=== PATIENT | female | born 1950 | race Caucasian/White ===

== ENCOUNTER 2019-02-11 22:20 | Emergency (ER) | payer MEDICARE, OTHER ==
[2019-02-11 22:42] VITALS: BP 139/74; PULSE 84
--- NOTE | 2019-02-11 22:52 | EDM.PDOC ---
ED HPI GENERAL MEDICAL PROBLEM - General Chief Complaint: Gastrointestinal Problem Stated Complaint: GREEN DIARRHEA Time Seen by Provider: 02/11/19 22:40 Source of Information: Reports: Patient History Limitations: Reports: No Limitations - History of Present Illness INITIAL COMMENTS - FREE TEXT/NARRATIVE: This 68 yo female patient reports to the ED due to having an episode of green diarrhea. The patient reports she has been having loose bowel movements all day. The patient reports she has had intermittent diarrhea for years. The patient reports she got worried when she had green diarrhea. Onset: Today Duration: Intermittent Quality: Reports: Other Severity: Mild Improves with: Reports: None Worsens with: Reports: None Context: Reports: Other Associated Symptoms: Reports: No Other Symptoms - Related Data Allergies Allergy/AdvReac Type Severity Reaction Status Date / Time erythromycin base Allergy Hives Verified 02/11/19 22:38 morphine Allergy Hives Verified 02/11/19 22:38 Home Meds: Home Meds Albuterol Sulfate [Albuterol Sulfate HFA] 2 puff IH Q6HR PRN 09/30/14 [History] Citalopram [Citalopram Hbr] 40 mg PO DAILY 09/30/14 [History] Famotidine [Pepcid] 20 mg PO DAILY 09/30/14 [History] Famotidine [Pepcid] 20 mg PO DAILY 09/30/14 [History] Fexofenadine HCl [Mariaa Allergy] 60 mg PO DAILY 09/30/14 [History] Fluticasone Propionate [Flonase] 16 gm NS DAILY 09/30/14 [History] Glimepiride [Amaryl] 2 mg PO DAILY 09/30/14 [History] Hydrocortisone [Anusol-HC] 30 gm RC BID PRN 09/30/14 [History] Levothyroxine [Sythroid] 100 mcg PO DAILY 09/30/14 [History] Liraglutide [Victoza] 0.6 mg SUBCUT DAILY 09/30/14 [History] Lisinopril/Hydrochlorothiazide [Lisinopril-Hctz 10-12.5 mg Tab] 1 tab PO DAILY 09/30/14 [History] Simvastatin [Zocor] 10 mg PO BEDTIME 09/30/14 [History] clonazePAM [Klonopin] 0.5 mg PO DAILY 09/30/14 [History] metFORMIN HCl [Metformin HCl] 1,000 mg PO BID 09/30/14 [History] Dicyclomine [Bentyl] 20 mg PO TID 02/11/19 [History] Past Medical History HEENT History: Reports: Cataract Cardiovascular History: Reports: High Cholesterol, Hypertension Gastrointestinal History: Reports: Bowel Obstruction Psychiatric History: Reports: Anxiety Endocrine/Metabolic History: Reports: Diabetes, Type II, Obesity/BMI 30+ Oncologic (Cancer) History: Reports: Uterine - Past Surgical History GI Surgical History: Reports: Hernia, Abdominal, Hernia Repair/Other Musculoskeletal Surgical History: Reports: Arthroscopic Knee ED ROS GENERAL - Review of Systems Review Of Systems: ROS reveals no pertinent complaints other than HPI. ED EXAM, GI/ABD - Physical Exam Exam: See Below Exam Limited By: No Limitations General Appearance: Alert, WD/WN, No Apparent Distress Eyes: Bilateral: Normal Appearance, EOMI Ears: Normal External Exam, Normal Canal, Hearing Grossly Normal, Normal TMs Nose: Normal Inspection, Normal Mucosa, No Blood Throat/Mouth: Normal Inspection, Normal Lips, Normal Teeth, Normal Gums, Normal Oropharynx, Normal Voice, No Airway Compromise Head: Atraumatic, Normocephalic Neck: Normal Inspection, Supple, Non-Tender, Full Range of Motion Respiratory/Chest: No Respiratory Distress, Lungs Clear, Normal Breath Sounds, No Accessory Muscle Use, Chest Non-Tender Cardiovascular: Normal Peripheral Pulses, Regular Rate, Rhythm, No Edema, No Gallop, No JVD, No Murmur, No Rub GI/Abdominal Exam: Normal Bowel Sounds, Soft, Non-Tender, No Organomegaly, No Distention, No Abnormal Bruit, No Mass, Pelvis Stable (Female) Exam: Deferred Rectal (Female) Exam: Deferred Back Exam: Normal Inspection, Full Range of Motion, NT Extremities: Normal Inspection, Normal Range of Motion, Non-Tender, Normal Capillary Refill, No Pedal Edema Neurological: Alert, Oriented, CN II-XII Intact, Normal Cognition, Normal Gait, Normal Reflexes, No Motor/Sensory Deficits Psychiatric: Normal Affect, Normal Mood Skin Exam: Warm, Dry, Intact, Normal Color, No Rash Lymphatic: No Adenopathy Course - Vital Signs Last Recorded V/S: Last Vital Signs Temp 36.3 C 02/11/19 22:25 Pulse 84 02/11/19 22:25 Resp 16 02/11/19 22:25 BP 139/74 02/11/19 22:25 Pulse Ox 96 02/11/19 22:25 - Orders/Labs/Meds Labs: Laboratory Tests 02/11/19 02/11/19 Range/Units 22:52 22:52 WBC 6.5 (5.0-10.0) 10^3/uL RBC 4.29 (4.2-5.4) 10^6/uL Hgb 13.0 D (12.0-16.0) g/dL Hct 38.2 (37.0-47.0) % MCV 89.0 (80-100) fL MCH 30.3 (27.0-34.0) pg MCHC 34.0 (33.0-35.0) g/dL Plt Count 178 (150-450) 10^3/uL Neut % (Auto) 69.6 (42.2-75.2) % Lymph % (Auto) 21.3 (20.5-50.1) % Winston % (Auto) 7.3 (2-8) % Eos % (Auto) 1.5 (1.0-3.0) % Baso % (Auto) 0.3 (0.0-1.0) % Sodium 140 (135-145) mmol/L Potassium 3.3 L (3.6-5.0) mmol/L Chloride 102 (101-111) mmol/L Carbon Dioxide 26.0 (21.0-31.0) mmol/L Anion Gap 15.3 BUN 15 (7-18) mg/dL Creatinine 0.8 (0.6-1.3) mg/dL Est Cr Clr Drug Dosing 53.23 mL/min Estimated GFR (MDRD) > 60 BUN/Creatinine Ratio 18.75 Glucose 165 H (74-105) mg/dL Calcium 9.4 (8.4-10.2) mg/dl Total Bilirubin 0.5 (0.2-1.0) mg/dL AST 28 (10-42) IU/L ALT 33 (10-60) IU/L Alkaline Phosphatase 55 (42-121) IU/L Total Protein 6.8 (6.7-8.2) g/dl Albumin 4.0 (3.2-5.5) g/dl Globulin 2.8 Albumin/Globulin Ratio 1.43 Departure - Departure Time of Disposition: 23:28 Disposition: Home, Self-Care 01 Condition: Fair Clinical Impression: Diarrhea Qualifiers: Diarrhea type: unspecified type Qualified Code(s): R19.7 - Diarrhea, unspecified - Discharge Information *PRESCRIPTION DRUG MONITORING PROGRAM REVIEWED*: Not Applicable *COPY OF PRESCRIPTION DRUG MONITORING REPORT IN PATIENT DORIAN: Not Applicable Instructions: Diarrhea, Adult, [id number] Forms: ED Department Discharge Care Plan Goals: The patient was advised of the examination and lab results during the visit. The patient was encouraged to continue to monitor her symptoms. If the patient has any additional symptoms or concerns, the patient should either return to the emergency department or visit her primary care facility.
[2019-02-11 23:18] LABS: ANION GAP 15.3; CHLORIDE,CL 102 mmol/L (101-111); SODIUM,NA 140 mmol/L (135-145)
== END 2019-02-11 23:42 | disposition home or self-care (01) ==
LOC: DL.ED 22:20
DX: R19.7 Diarrhea, unspecified (principal); I10 Essential (primary) hypertension; E11.9 Type 2 diabetes mellitus without complications; E78.00 Pure hypercholesterolemia, unspecified; F41.9 Anxiety disorder, unspecified; E66.9 Obesity, unspecified; Z68.38 Body mass index [BMI] 38.0-38.9, adult; Z88.5 Allergy status to narcotic agent; Z88.1 Allergy status to other antibiotic agents; Z79.84 Long term (current) use of oral hypoglycemic drugs; Z79.899 Other long term (current) drug therapy
CPT/HCPCS: 36415; 80053; 85025; 99284

== ENCOUNTER 2022-01-18 17:16 | Emergency (ER) | payer MEDICARE, OTHER ==
[2022-01-18 17:29] VITALS: BP 143/119; PULSE 77
[2022-01-18] MEDS ORDERED: Ketorolac 30 MG/ML SDV IM ONE (18:06)
[2022-01-18] MEDS ORDERED: Amoxicillin/Clavulanate K 875-125 MG Tab PO ONE (18:07)
== END 2022-01-18 18:18 | disposition home or self-care (01) ==
LOC: DL.ED 17:16
DX: K04.7 Periapical abscess without sinus (principal); E78.00 Pure hypercholesterolemia, unspecified; I10 Essential (primary) hypertension; E11.9 Type 2 diabetes mellitus without complications; E66.9 Obesity, unspecified; Z68.38 Body mass index [BMI] 38.0-38.9, adult; Z88.5 Allergy status to narcotic agent; Z88.1 Allergy status to other antibiotic agents; Z79.899 Other long term (current) drug therapy; Z79.84 Long term (current) use of oral hypoglycemic drugs
CPT/HCPCS: 96372; 99282; 99283; A9270-GY; J1885

== ENCOUNTER 2023-02-12 17:51 | Emergency (ER) | payer BC, MEDICARE, OTHER ==
[2023-02-12 18:34] VITALS: BP 118/92; PULSE 85
== END 2023-02-12 18:51 | disposition left against medical advice (07) ==
LOC: DL.ED 17:51
DX: Z53.21 Procedure and treatment not carried out due to patient leaving prior to being seen by health care provider (principal)